=== PATIENT | female | born 1930 | race Caucasian/White ===

== ENCOUNTER 2016-06-16 17:43 | Emergency (ER) | payer OTHER ==
[~2016-06-16 17:43] MED LIST: ALTOPREV40 MG PO; ATENOLOL50 MG PO; DILANTIN100 MG PO; KLOR-CON 1010 MEQ PO; LEVOTHYROXINE100 MCG PO; LEVOTHYROXINE75 MCG PO; LISINOPRIL5 MG PO; MELATONIN1 MG PO
--- NOTE | 2016-06-16 18:12 | ED CLINICAL REPORT ---
Clinical Report - Physicians/Mid Levels [facility] [address] [place] [address] 06/16/2016 17:44 Patient: REMA GONZALEZ Time Seen: 17:49; initial patient contact, initial documentation, patient care assumed. Arrived- By private vehicle. Historian- patient and son. HISTORY OF PRESENT ILLNESS Chief Complaint: DENTAL PAIN. This started about 2 days ago and is still present. Pain described as severe. No sore throat, mouth sores, nasal discharge or congestion or ear pain. She has had toothache, swelling of the jaw and face, jaw pain and facial pain. (no dentist, several teeth bad, and has no money for dentist). Similar symptoms previously: Chronically, milder. Recent medical care: Not recently seen/assessed. REVIEW OF SYSTEMS No difficulty breathing. All systems otherwise negative, except as recorded above. PAST HISTORY See nurses notes. PROBLEMS: Dental Abscess. Pancreatitis. Recent Travel. Sick Contact. CVA - Cerebrovascular Accident. Diarrhea. Heart Murmur. Hiatal Hernia. Dental Caries. Dental Pain. Back Pain. Thyroid Disease. Hypertension. Seizure. Aneurysm, Cerebral. --17:51 Syeda Nguyen R.N. ADDITIONAL SURGERIES: Hernia Repair. Hysterectomy. Thyroid Surgery. --17:51 Syeda Nguyen R.N. SOCIAL HISTORY Former smoker. No alcohol use or drug use. No recent travel. Is a local resident. FAMILY HISTORY Negative. ADDITIONAL NOTES The nursing notes have been reviewed with agreement regarding the chief complaint, HPI, ROS, PMH and patient medications and allergies. PHYSICAL EXAM Vital Signs: 06/16/2016 17:48 BP: 184/63. HR: 63. RR: 20. O2 saturation: 100%. Temp: 98 F. Pain level now: 7/10. Have been reviewed as normal and appear to be correct. Appearance: Alert. No acute distress. Head: Abnormal external inspection. Mild swelling of the left mandible. Moderate swelling of the left maxilla. Eyes: Pupils equal, round and reactive to light. Conjunctivae and eyelids normal. ENT: Severe, extensive dental decay with gingival swelling (only one tooth left on bottom and it is partially gone, several teeth missing and molars on L lower side broken at gum line, extensive decay present and gum swelling on L lower). No gingival tenderness, induration or fluctuance. Pharynx normal. Lips normal. Gums normal. No trismus present. Uvula midline. Respiratory: No respiratory distress. Skin: Normal skin color. No rash. Normal skin turgor. Extremities: Extremities exhibit normal ROM. Extremities nontender. Neuro: Oriented X 3. No motor deficit. No sensory deficit. PROGRESS AND PROCEDURES Course of Care: 18:14 06/16/16. pt has gilberto for #5 er visit, nothing alarming, see report for full details. Patient and family counseled in person regarding the patient's stable condition and diagnosis. Differential Diagnosis: Other possible considerations: dental abscess, caries pain. Above considerations are based on history and physical exam. Differential diagnosis was discussed with patient and patient's family. Disposition: Discharged home in good and improved condition (18:12). Condition: good and stable. CLINICAL IMPRESSION Dental caries (extensive decay) INSTRUCTIONS Warnings: GENERAL WARNINGS: Return or contact your physician immediately if your condition worsens or changes unexpectedly, if not improving as expected, or if other problems arise. Specifically return if problem worsens. Prescription Medications: Penicillin V 500mg: take 1 tab orally every 6 hours for 10 days. Dispense forty (40). No refill [place] 5 mg / 325 mg tablets: take 1 to 2 orally every 6 hours as needed for pain. Dispense fifteen (15). No refills. Substitution is permissible. Follow-up: Follow up with a dentist in two days even if well. Call for an appointment. Summary of care provided to patient and family. Understanding of the discharge instructions verbalized by patient and family. (Electronically signed by Angela Alvarado A.R.N.P. 06/16/2016 19:47)
--- NOTE | 2016-06-16 18:12 | ED NURSING NOTES ---
Clinical Report - Nurses [facility] [address] [place] [address] 06/16/2016 17:44 Patient: REMA GONZALEZ TRIAGE Acuity: LEVEL 3. Chief Complaint: JAW PAIN and SWELLING OF JAW / FACE. Alert. No acute distress. --17:56 Syeda Nguyen R.N. 17:48 06/16/16. BP: 184/63. HR: 63. RR: 20. O2 saturation: 100% on room air. Temp: 98 F (oral). Pain level now: 08/26. --17:56 Syeda Nguyen R.N. Weight: 83.9 kg stated. Height/Length: 64 inches Per Patient. BMI: 31.8. --17:53 Syeda Nguyen R.N. Medications Atenolol Oral 50 mg, daily. Levothyroxine Sodium Oral 175 mcg, daily. Lovastatin Oral (Tablet 40 mg), daily. Melatonin Oral (Tablet 1 mg), daily. Phenytoin Oral 100 mg, daily (2 tabs). Potassium Chloride Oral 10 meq, daily. --17:50 Syeda Nguyen R.N. Medication/allergy information source: the patient. --17:56 Syeda Nguyen R.N. Allergies Ibuprofen. (caused stomach/GI bleed leading to blood transfusion.) --17:50 Syeda Nguyen R.N. History Arrived by private vehicle. Historian: patient. Accompanied by son. Primary physician (Phu). Onset. (2 days ago). She has no dental appointment scheduled. PAST MEDICAL HX: The patient has had a hysterectomy. SOCIAL HX: Former smoker, end date 1990. No alcohol use or drug use. NUTRITIONAL RISK ASSESSMENT: The nutritional risk assessment revealed no deficiencies. LEARNING NEEDS ASSESSMENT: The learning needs assessment revealed no barriers. FALL RISK ASSESSMENT: Fall risk assessment completed. Risk factors identified include patient age greater than 65 years and impairment of mobility and sight. Fall interventions initiated. Patient placed on stretcher. Side rails up x2. Brakes on Bed in low position. Call light in reach of patient. 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 SKIN INTEGRITY ASSESSMENT: Skin integrity risk assessment completed. No skin integrity risk identified. --17:56 Syeda Nguyen R.N. PROBLEMS: Dental Abscess. Pancreatitis. Recent Travel. Sick Contact. CVA - Cerebrovascular Accident. Diarrhea. Heart Murmur. Hiatal Hernia. Dental Caries. Dental Pain. Back Pain. Thyroid Disease. Hypertension. Seizure. Aneurysm, Cerebral. --17:51 Syeda Nguyen R.N. ADDITIONAL SURGERIES: Hernia Repair. Hysterectomy. Thyroid Surgery. --17:51 Syeda Nguyen R.N. Assessment GENERAL / NEURO / PSYCH: Alert. Oriented X 4. Appears in no acute distress. Holly Coma Scale: 15- eyes open spontaneously (4); best verbal response- oriented x 4 (5); best motor response- obeys commands (6). Patient appears calm and cooperative. RESPIRATORY: Respirations not labored. CVS: Capillary refill less than 2 seconds. GI / : Abdomen soft and nontender. SKIN: Mucous membranes are pink. Skin is warm and dry. --17:56 Syeda Nguyen R.N. Interventions ID band on patient. To treatment room. --17:56 Syeda Nguyen R.N. PHYSICAL ASSESSMENT 17:57 06/16/16. To room via wheelchair. GENERAL / NEURO / PSYCH: Alert. Oriented X 4. Appears in no acute distress. HEENT: Pupils equal, round and reactive to light. Voice within normal limits. Dental decay. Mucous membranes are pink. RESPIRATORY: Respirations not labored. CVS: Capillary refill less than 2 seconds. SKIN: Skin is warm and dry. Normal skin turgor. --17:57 Syeda Nguyen R.N. NURSING PROGRESS NOTES 17:57 06/16/16. Two patient identifiers checked. Call light placed in reach. Side rails up x 2. Bed placed in lowest position. Brakes of bed on. Patient ready for evaluation- chart flagged and ED physician and [employer] notified. --17:57 Syeda Nguyen R.N. 18:21 06/16/2016 Clindamycin IM 600 mg given. Given in the right gluteus obey and left gluteus obey (split dose). Allergies verified and confirmed 5 rights. --18:36 Syeda Nguyen R.N. 18:21 06/16/2016 Hydrocodone-APAP (Hydrocodone-Acetaminophen) PO 5/325 mg Tablets 1 tab given. Allergies verified, confirmed 5 rights and sedative warning given to the patient. --18:36 Syeda Nguyen R.N. DISPOSITION / DISCHARGE Departure time: 18:Jun 16 2016. Condition at departure: improved and stable. No learning barriers present. Reviewed medication(s) side effects, precautions and dosing information. Prescription(s) given to the patient. Patient verbalized understanding. Written instructions provided in Ukrainian. The patient was discharged by the nurse practitioner. She was discharged home and accompanied by son. She left the Emergency Department in a wheelchair and via private vehicle. Driving (son). --18:39 Syeda Nguyen R.N. Locked/Released at 06/16/2016 18:40 by Syeda Nguyen R.N.
--- NOTE | 2016-06-16 18:12 | ED ORDER SUMMARY ---
..... Patient: REMA GONZALEZ OrderSheet [facility] VisitID: [id number] [address] [place] [address] 85y, F Registration Date/Time: 06/16/2016 ORDER SHEET Weight: 83.9 kg (stated) Allergies: Ibuprofen GENERAL ORDERS: MEDICATION ORDERS: Clindamycin IM 600 mg (NOW) (18:09 06/16/2016 HBivens A.R.N.P.) (Ack 18:16 MWinterer R.N.) (18:36 MWinterer R.N.) Hydrocodone-APAP PO 5/325 mg (NOW, HIGH ALERT MEDICATION) (18:12 06/16/2016 HBivens A.R.N.P.) (Ack 18:16 MWinterer R.N.) (18:36 MWinterer R.N.) IV FLUIDS: ORDER SHEET NOTES: [Electronically signed by Syeda Nguyen R.N. (18:40 06/16/2016)] [Electronically signed by Angela Alvarado.R.N.P. (19:47 06/16/2016)] [Electronically locked/signed by Syeda Nguyen R.N. (18:40 06/16/2016)]
--- NOTE | 2016-06-16 18:12 | ED ORDER SUMMARY ---
..... Patient: REMA GONZALEZ OrderSheet [facility] VisitID: [id number] [address] [place] [address] 85y, F Registration Date/Time: 06/16/2016 ORDER SHEET Weight: 83.9 kg (stated) Allergies: Ibuprofen GENERAL ORDERS: MEDICATION ORDERS: Clindamycin IM 600 mg (NOW) (18:09 06/16/2016 HBivens A.R.N.P.) (Ack 18:16 MWinterer R.N.) (18:36 MWinterer R.N.) Hydrocodone-APAP PO 5/325 mg (NOW, HIGH ALERT MEDICATION) (18:12 06/16/2016 HBivens A.R.N.P.) (Ack 18:16 MWinterer R.N.) (18:36 MWinterer R.N.) IV FLUIDS: ORDER SHEET NOTES: [Electronically signed by Syeda Nguyen R.N. (18:40 06/16/2016)] [Electronically signed by Angela Alvarado.R.N.P. (19:47 06/16/2016)] [Electronically locked/signed by Syeda Nguyen R.N. (18:40 06/16/2016)]
--- NOTE | 2016-06-16 18:12 | ED CLINICAL REPORT ---
Clinical Report - Physicians/Mid Levels [facility] [address] [place] [address] 06/16/2016 17:44 Patient: REMA GONZALEZ Time Seen: 17:49; initial patient contact, initial documentation, patient care assumed. Arrived- By private vehicle. Historian- patient and son. HISTORY OF PRESENT ILLNESS Chief Complaint: DENTAL PAIN. This started about 2 days ago and is still present. Pain described as severe. No sore throat, mouth sores, nasal discharge or congestion or ear pain. She has had toothache, swelling of the jaw and face, jaw pain and facial pain. (no dentist, several teeth bad, and has no money for dentist). Similar symptoms previously: Chronically, milder. Recent medical care: Not recently seen/assessed. REVIEW OF SYSTEMS No difficulty breathing. All systems otherwise negative, except as recorded above. PAST HISTORY See nurses notes. PROBLEMS: Dental Abscess. Pancreatitis. Recent Travel. Sick Contact. CVA - Cerebrovascular Accident. Diarrhea. Heart Murmur. Hiatal Hernia. Dental Caries. Dental Pain. Back Pain. Thyroid Disease. Hypertension. Seizure. Aneurysm, Cerebral. --17:51 Syeda Nguyen R.N. ADDITIONAL SURGERIES: Hernia Repair. Hysterectomy. Thyroid Surgery. --17:51 Syeda Nguyen R.N. SOCIAL HISTORY Former smoker. No alcohol use or drug use. No recent travel. Is a local resident. FAMILY HISTORY Negative. ADDITIONAL NOTES The nursing notes have been reviewed with agreement regarding the chief complaint, HPI, ROS, PMH and patient medications and allergies. PHYSICAL EXAM Vital Signs: 06/16/2016 17:48 BP: 184/63. HR: 63. RR: 20. O2 saturation: 100%. Temp: 98 F. Pain level now: 7/10. Have been reviewed as normal and appear to be correct. Appearance: Alert. No acute distress. Head: Abnormal external inspection. Mild swelling of the left mandible. Moderate swelling of the left maxilla. Eyes: Pupils equal, round and reactive to light. Conjunctivae and eyelids normal. ENT: Severe, extensive dental decay with gingival swelling (only one tooth left on bottom and it is partially gone, several teeth missing and molars on L lower side broken at gum line, extensive decay present and gum swelling on L lower). No gingival tenderness, induration or fluctuance. Pharynx normal. Lips normal. Gums normal. No trismus present. Uvula midline. Respiratory: No respiratory distress. Skin: Normal skin color. No rash. Normal skin turgor. Extremities: Extremities exhibit normal ROM. Extremities nontender. Neuro: Oriented X 3. No motor deficit. No sensory deficit. PROGRESS AND PROCEDURES Course of Care: 18:14 06/16/16. pt has gilberto for #5 er visit, nothing alarming, see report for full details. Patient and family counseled in person regarding the patient's stable condition and diagnosis. Differential Diagnosis: Other possible considerations: dental abscess, caries pain. Above considerations are based on history and physical exam. Differential diagnosis was discussed with patient and patient's family. Disposition: Discharged home in good and improved condition (18:12). Condition: good and stable. CLINICAL IMPRESSION Dental caries (extensive decay) INSTRUCTIONS Warnings: GENERAL WARNINGS: Return or contact your physician immediately if your condition worsens or changes unexpectedly, if not improving as expected, or if other problems arise. Specifically return if problem worsens. Prescription Medications: Penicillin V 500mg: take 1 tab orally every 6 hours for 10 days. Dispense forty (40). No refill [place] 5 mg / 325 mg tablets: take 1 to 2 orally every 6 hours as needed for pain. Dispense fifteen (15). No refills. Substitution is permissible. Follow-up: Follow up with a dentist in two days even if well. Call for an appointment. Summary of care provided to patient and family. Understanding of the discharge instructions verbalized by patient and family. (Electronically signed by Angela Alvarado A.R.N.P. 06/16/2016 19:47)
--- NOTE | 2016-06-16 19:47 | ED DISCHARGE INSTRUCTIONS ---
Patient: REMA GONZALEZ General Instructions [facility] VisitID: [id number] [place] [address] 85y, F Registration Date/Time: 06/16/2016 Dental caries (extensive decay) INSTRUCTIONS Warnings: GENERAL WARNINGS: Return or contact your physician immediately if your condition worsens or changes unexpectedly, if not improving as expected, or if other problems arise. Specifically return if problem worsens. Prescription Medications: Penicillin V 500mg: take 1 tab orally every 6 hours for 10 days. Dispense forty (40). No refill [place] 5 mg / 325 mg tablets: take 1 to 2 orally every 6 hours as needed for pain. Dispense fifteen (15). No refills. Substitution is permissible. Follow-up: Follow up with a dentist in two days even if well. Call for an appointment. Summary of care provided to patient and family. Understanding of the discharge instructions verbalized by patient and family. ADDITIONAL INFORMATION Dental Cavity A dental cavity is a pit or crater in the enamel surface of the tooth. This exposes the sensitive inner layer of the tooth and causes pain. If untreated, the cavity will get bigger and may cause an infection or abscess in the root of the tooth. An infection in the tooth is a much more serious problem and may require a root canal or removal of the entire tooth. The tooth pain may be made worse by drinking hot or cold fluids. It may spread from the tooth to the ear or jaw on the same side. Home Care: Avoid hot and cold foods, and liquids since your tooth may be sensitive to temperature changes. If your tooth is chipped or cracked, or if there is a large open cavity, apply OIL OF CLOVES (available egms-cmx-fqyoqks in drug stores) directly to the tooth to reduce pain. Some pharmacies carry an bibt-twn-fplrpfv "toothache kit." This contains oil of cloves and a paste, which can be applied over the exposed tooth to decrease sensitivity. An ice pack on your jaw over the sore area may help to reduce pain. You may use acetaminophen (Tylenol) or ibuprofen (Motrin, Advil) to control pain, unless another pain medicine was prescribed. [ NOTE: If you have liver disease or ever had a stomach ulcer, talk with your doctor before using these medicines.] If you have signs of an infection, an antibiotic will be given. Take it as directed. Follow-Up with your dentist as directed. Although your pain may go away with the treatment given, only a dentist can fully evaluate and treat this problem to prevent further tooth damage. Get Prompt Medical Attention if any of the following occur: Redness or swelling of the face Pain worsens or spreads to the neck Fever over 100.5 F (38C) Unusual drowsiness; headache or stiff neck; weakness or fainting Pus drains from the tooth or gum Difficulty swallowing or breathing Dental Abscess A dental abscess is an infection of the tooth socket. It often starts with a crack or cavity in the tooth. A pocket of pus forms between the tooth and the bone. The infection causes pain and swelling of the gum, cheek or jaw. The pain is often made worse by drinking hot or cold fluids, or biting on hard foods. Pain may be felt in the facial sinus or in the ear. A severe infection can interfere with swallowing and breathing. In the emergency department or clinic, you will be started on an antibiotic. However, final treatment requires drainage of the pus. This can be done by removing the tooth or performing a root canal. A root canal is done by an oral surgeon and involves drilling an opening in the tooth to drain the pus. After the infection has healed, a crown is placed over the tooth. Home care The following guidelines will help you care for your abscess at home: Avoid hot and cold foods and liquids since your tooth may be sensitive to temperature changes. If your tooth is chipped or cracked, or if there is a large open cavity, applyoil of cloves(available piha-xak-ouituwl in drug stores) directly to the tooth to reduce pain. Some pharmacies carry an shcq-hnk-oppnixi "toothache kit". This contains oil of cloves and a paste, which can be applied over the exposed tooth to decrease sensitivity. Apply an ice pack (ice cubes in a plastic bag, wrapped in a towel) over the injured area for 20 minutes every 12 hours the first day for pain relief. Continue this 34 times a day until the pain and swelling goes away. You may use acetaminophen or ibuprofen to control pain, unless another medicine was prescribed. If you have chronic liver or kidney disease or ever had a stomach ulcer or GI bleeding, talk with your doctor before using these medicines. An antibiotic will be prescribed. Take it as directed until completed, even if you are feeling better sooner. Follow-up care Follow up as directed with a dentist or oral surgeon. Even though your pain may improve with the treatment given today, only a dentist or oral surgeon can provide full treatment for this problem. When to seek medical care Get prompt medical attention or contact your doctor if any of the following occur: Your face or eyelid becomes swollen or red Pain worsens or spreads to the neck Fever over 100.4F (38.0C) Unusual drowsiness; headache or stiff neck; weakness, or fainting Pus drains from the gum or tooth Difficulty talking, swallowing or breathing Unable to open your mouth wide Dental Pain A crack or cavity in the tooth, which exposes the sensitive inner area of the tooth can cause tooth pain. An infection in the gum or the root of the tooth can cause pain and swelling. The pain is often made worse by drinking hot or cold fluids, or biting on hard foods. Pain may spread from the tooth to the ear or jaw on the same side. Home Care: Avoid hot and cold foods and liquids since your tooth may be sensitive to temperature changes. If your tooth is chipped or cracked, or if there is a large open cavity, apply OIL OF CLOVES (available asef-ixl-fzarrwz in drug stores) directly to the tooth to reduce pain. Some pharmacies carry an bfig-ker-qlabqxa "toothache kit." This contains a paste, which can be applied over the exposed tooth to decrease sensitivity. A cold pack on your jaw over the sore area may help reduce pain. You may use acetaminophen (Tylenol) or ibuprofen (Motrin, Advil) to control pain, unless another medicine was prescribed. [ NOTE: If you have chronic liver or kidney disease or ever had a stomach ulcer or GI bleeding, talk with your doctor before using these medicines.] If you have signs of an infection, an antibiotic will be given. Take it as directed. Follow-Up as directed with a dentist. Your pain may go away with the treatment given. However, only a dentist can fully evaluate and treat the cause and prevent the pain from coming back again. TOOTHACHE IS A SIGN OF DISEASE IN YOUR TOOTH AND SHOULD BE EXAMINED AND TREATED BY A DENTIST. Get Prompt Medical Attention if any of the following occur: Your face becomes swollen or red Pain worsens or spreads to the neck Fever over 100.4 F (38.0 C) Unusual drowsiness; headache or stiff neck; weakness or fainting Pus drains from the tooth Difficulty swallowing or breathing Penicillin V Potassium Oral tablet What is this medicine? PENICILLIN V (pen i SILL in V) is a penicillin antibiotic. It is used to treat certain kinds of bacterial infections. It will not work for colds, flu, or other viral infections. How should I use this medicine? Take this medicine by mouth with a full glass of water. Follow the directions on the prescription label. Take your medicine at regular intervals. Do not take your medicine more often than directed. Take all of your medicine as directed even if you think your are better. Do not skip doses or stop your medicine early. Talk to your piano regulator inspector regarding the use of this medicine in children. While this drug may be prescribed for selected conditions, precautions do apply. What side effects may I notice from receiving this medicine? Side effects that you should report to your doctor or health pediatric acute care unit nurse as soon as possible: allergic reactions like skin rash or hives, swelling of the face, lips, or tongue breathing problems fever new symptoms of infection redness, blistering, peeling or loosening of the skin, including inside the mouth unusually weak or tired Side effects that usually do not require medical attention (report to your doctor or health pediatric acute care unit nurse if they continue or are bothersome): diarrhea headache nausea, vomiting sore mouth or tongue stomach upset What may interact with this medicine? control pills methotrexate other antibiotics probenecid some vaccines What if I miss a dose? If you miss a dose, take it as soon as you can. If it is almost time for your next dose, take only that dose. Do not take double or extra doses. Where should I keep my medicine? Keep out of the reach of children. Store at room temperature between 15 and 30 degrees C (59 and 86 degrees F). Keep container tightly closed. Throw away any unused medicine after the expiration date. What should I tell my health care provider before I take this medicine? They need to know if you have any of these conditions: asthma bowel disease, like colitis eczema kidney disease an unusual or allergic reaction to penicillin, cephalosporins, other antibiotics or medicines, foods, tartrazine or other dyes, or preservatives or trying to get breast-feeding What should I watch for while using this medicine? Tell your doctor or health pediatric acute care unit nurse if your symptoms do not improve. Do not treat diarrhea with over the counter products. Contact your doctor if you have diarrhea that lasts more than 2 days or if it is severe and watery. If you have diabetes, you may get a false-positive result for sugar in your urine. Check with your doctor or health pediatric acute care unit nurse. control pills may not work properly while you are taking this medicine. Talk to your doctor about using an extra method of control. Hydrocodone Bitartrate, Acetaminophen Oral tablet What is this medicine? ACETAMINOPHEN; HYDROCODONE (a set a CHANDA lora fen; jed droe KOE done) is a pain reliever. It is used to treat mild to moderate pain. How should I use this medicine? Take this medicine by mouth. Swallow it with a full glass of water. Follow the directions on the prescription label. If the medicine upsets your stomach, take the medicine with food or milk. Do not take more than you are told to take. Talk to your piano regulator inspector regarding the use of this medicine in children. This medicine is not approved for use in children. What side effects may I notice from receiving this medicine? Side effects that you should report to your doctor or health pediatric acute care unit nurse as soon as possible: allergic reactions like skin rash, itching or hives, swelling of the face, lips, or tongue breathing problems confusion feeling faint or lightheaded, falls stomach pain yellowing of the eyes or skin Side effects that usually do not require medical attention (report to your doctor or health pediatric acute care unit nurse if they continue or are bothersome): nausea, vomiting stomach upset What may interact with this medicine? alcohol antihistamines isoniazid medicines for depression, anxiety, or psychotic disturbances medicines for sleep muscle relaxants naltrexone narcotic medicines (opiates) for pain phenobarbital ritonavir tramadol What if I miss a dose? If you miss a dose, take it as soon as you can. If it is almost time for your next dose, take only that dose. Do not take double or extra doses. Where should I keep my medicine? Keep out of the reach of children. This medicine can be abused. Keep your medicine in a safe place to protect it from theft. Do not share this medicine with anyone. Selling or giving away this medicine is dangerous and against the law. Store at room temperature between 15 and 30 degrees C (59 and 86 degrees F). Protect from light. Keep container tightly closed. Throw away any unused medicine after the expiration date. Discard unused medicine and used packaging carefully. Pets and children can be harmed if they find used or lost packages. What should I tell my health care provider before I take this medicine? They need to know if you have any of these conditions: brain tumor Crohn's disease, inflammatory bowel disease, or ulcerative colitis drink more than 3 alcohol-containing drinks per day drug abuse or addiction head injury heart or circulation problems kidney disease or problems going to the bathroom liver disease lung disease, asthma, or breathing problems an unusual or allergic reaction to acetaminophen, hydrocodone, other opioid analgesics, other medicines, foods, dyes, or preservatives or trying to get breast-feeding What should I watch for while using this medicine? Tell your doctor or health pediatric acute care unit nurse if your pain does not go away, if it gets worse, or if you have new or a different type of pain. You may develop tolerance to the medicine. Tolerance means that you will need a higher dose of the medicine for pain relief. Tolerance is normal and is expected if you take the medicine for a long time. Do not suddenly stop taking your medicine because you may develop a severe reaction. Your body becomes used to the medicine. This does NOT mean you are addicted. Addiction is a behavior related to getting and using a drug for a non-medical reason. If you have pain, you have a medical reason to take pain medicine. Your doctor will tell you how much medicine to take. If your doctor wants you to stop the medicine, the dose will be slowly lowered over time to avoid any side effects. You may get drowsy or dizzy when you first start taking the medicine or change doses. Do not drive, use machinery, or do anything that may be dangerous until you know how the medicine affects you. Stand or sit up slowly. There are different types of narcotic medicines (opiates) for pain. If you take more than one type at the same time, you may have more side effects. Give your health care provider a list of all medicines you use. Your doctor will tell you how much medicine to take. Do not take more medicine than directed. Call emergency for help if you have problems breathing. The medicine will cause constipation. Try to have a bowel movement at least every 2 to 3 days. If you do not have a bowel movement for 3 days, call your doctor or health pediatric acute care unit nurse. Too much acetaminophen can be very dangerous. Do not take Tylenol (acetaminophen) or medicines that contain acetaminophen with this medicine. Many non-prescription medicines contain acetaminophen. Always read the labels carefully. You have been given the following additional information: Dental Cavity Tooth Abscess Dental Pain Penicillin V Potassium Oral tablet Hydrocodone Bitartrate, Acetaminophen Oral tablet (Electronically signed by Angela Alvarado A.R.N.P. 06/16/2016 19:47)
--- NOTE | 2016-06-16 19:47 | ED MED RECONCILIATION SUMMARY ---
Patient: REMA GONZALEZ Medication Reconciliation Report [facility] VisitID: [id number] [address] [place] [address] 85y, F Registration Date/Time: 06/16/2016 Weight: 83.9 kg Height/Length: 64 in. BMI: 31.8 ALLERGIES: Ibuprofen The patient's Home Medications are listed below: THE FOLLOWING MEDICATIONS NEED TO BE RECONCILED: Atenolol Oral 50 mg, daily Levothyroxine Sodium Oral 175 mcg, daily Lovastatin Oral (40 mg), daily Melatonin Oral (1 mg), daily Phenytoin Oral 100 mg, daily, 2 tabs Potassium Chloride Oral 10 meq, daily The source(s) of the original Home Medication information: patient The following Medications were given to the patient in the Emergency Department: Clindamycin [IM] IM 600 mg, administered: 06/16/2016 6:21:00 PM Hydrocodone-APAP [PO] PO 1 tab, administered: 06/16/2016 6:21:00 PM The following Medications were prescribed to the patient: Penicillin V 500mg: take 1 tab orally every 6 hours for 10 days. Dispense forty (40). No refill -- Angela Alvarado, Adryan.R.N.P. [place] 5 mg / 325 mg tablets: take 1 to 2 orally every 6 hours as needed for pain. Dispense fifteen (15). No refills. Substitution is permissible. -- Angela Alvarado A.R.N.P.
--- NOTE | 2016-06-16 19:47 | ED MED RECONCILIATION SUMMARY ---
Patient: REMA GONZALEZ Medication Reconciliation Report [facility] VisitID: [id number] [address] [place] [address] 85y, F Registration Date/Time: 06/16/2016 Weight: 83.9 kg Height/Length: 64 in. BMI: 31.8 ALLERGIES: Ibuprofen The patient's Home Medications are listed below: THE FOLLOWING MEDICATIONS NEED TO BE RECONCILED: Atenolol Oral 50 mg, daily Levothyroxine Sodium Oral 175 mcg, daily Lovastatin Oral (40 mg), daily Melatonin Oral (1 mg), daily Phenytoin Oral 100 mg, daily, 2 tabs Potassium Chloride Oral 10 meq, daily The source(s) of the original Home Medication information: patient The following Medications were given to the patient in the Emergency Department: Clindamycin [IM] IM 600 mg, administered: 06/16/2016 6:21:00 PM Hydrocodone-APAP [PO] PO 1 tab, administered: 06/16/2016 6:21:00 PM The following Medications were prescribed to the patient: Penicillin V 500mg: take 1 tab orally every 6 hours for 10 days. Dispense forty (40). No refill -- Angela Alvarado, Adryan.R.N.P. [place] 5 mg / 325 mg tablets: take 1 to 2 orally every 6 hours as needed for pain. Dispense fifteen (15). No refills. Substitution is permissible. -- Angela Alvarado A.R.N.P.
--- NOTE | 2016-06-16 19:47 | ED DISCHARGE INSTRUCTIONS ---
Patient: REMA GONZALEZ General Instructions [facility] VisitID: [id number] [place] [address] 85y, F Registration Date/Time: 06/16/2016 Dental caries (extensive decay) INSTRUCTIONS Warnings: GENERAL WARNINGS: Return or contact your physician immediately if your condition worsens or changes unexpectedly, if not improving as expected, or if other problems arise. Specifically return if problem worsens. Prescription Medications: Penicillin V 500mg: take 1 tab orally every 6 hours for 10 days. Dispense forty (40). No refill [place] 5 mg / 325 mg tablets: take 1 to 2 orally every 6 hours as needed for pain. Dispense fifteen (15). No refills. Substitution is permissible. Follow-up: Follow up with a dentist in two days even if well. Call for an appointment. Summary of care provided to patient and family. Understanding of the discharge instructions verbalized by patient and family. ADDITIONAL INFORMATION Dental Cavity A dental cavity is a pit or crater in the enamel surface of the tooth. This exposes the sensitive inner layer of the tooth and causes pain. If untreated, the cavity will get bigger and may cause an infection or abscess in the root of the tooth. An infection in the tooth is a much more serious problem and may require a root canal or removal of the entire tooth. The tooth pain may be made worse by drinking hot or cold fluids. It may spread from the tooth to the ear or jaw on the same side. Home Care: Avoid hot and cold foods, and liquids since your tooth may be sensitive to temperature changes. If your tooth is chipped or cracked, or if there is a large open cavity, apply OIL OF CLOVES (available zuer-hyu-ipxyind in drug stores) directly to the tooth to reduce pain. Some pharmacies carry an wbnq-bnc-upgzwbi "toothache kit." This contains oil of cloves and a paste, which can be applied over the exposed tooth to decrease sensitivity. An ice pack on your jaw over the sore area may help to reduce pain. You may use acetaminophen (Tylenol) or ibuprofen (Motrin, Advil) to control pain, unless another pain medicine was prescribed. [ NOTE: If you have liver disease or ever had a stomach ulcer, talk with your doctor before using these medicines.] If you have signs of an infection, an antibiotic will be given. Take it as directed. Follow-Up with your dentist as directed. Although your pain may go away with the treatment given, only a dentist can fully evaluate and treat this problem to prevent further tooth damage. Get Prompt Medical Attention if any of the following occur: Redness or swelling of the face Pain worsens or spreads to the neck Fever over 100.5 F (38C) Unusual drowsiness; headache or stiff neck; weakness or fainting Pus drains from the tooth or gum Difficulty swallowing or breathing Dental Abscess A dental abscess is an infection of the tooth socket. It often starts with a crack or cavity in the tooth. A pocket of pus forms between the tooth and the bone. The infection causes pain and swelling of the gum, cheek or jaw. The pain is often made worse by drinking hot or cold fluids, or biting on hard foods. Pain may be felt in the facial sinus or in the ear. A severe infection can interfere with swallowing and breathing. In the emergency department or clinic, you will be started on an antibiotic. However, final treatment requires drainage of the pus. This can be done by removing the tooth or performing a root canal. A root canal is done by an oral surgeon and involves drilling an opening in the tooth to drain the pus. After the infection has healed, a crown is placed over the tooth. Home care The following guidelines will help you care for your abscess at home: Avoid hot and cold foods and liquids since your tooth may be sensitive to temperature changes. If your tooth is chipped or cracked, or if there is a large open cavity, applyoil of cloves(available atoy-qgl-fhupxrf in drug stores) directly to the tooth to reduce pain. Some pharmacies carry an yivs-eui-nphltdi "toothache kit". This contains oil of cloves and a paste, which can be applied over the exposed tooth to decrease sensitivity. Apply an ice pack (ice cubes in a plastic bag, wrapped in a towel) over the injured area for 20 minutes every 12 hours the first day for pain relief. Continue this 34 times a day until the pain and swelling goes away. You may use acetaminophen or ibuprofen to control pain, unless another medicine was prescribed. If you have chronic liver or kidney disease or ever had a stomach ulcer or GI bleeding, talk with your doctor before using these medicines. An antibiotic will be prescribed. Take it as directed until completed, even if you are feeling better sooner. Follow-up care Follow up as directed with a dentist or oral surgeon. Even though your pain may improve with the treatment given today, only a dentist or oral surgeon can provide full treatment for this problem. When to seek medical care Get prompt medical attention or contact your doctor if any of the following occur: Your face or eyelid becomes swollen or red Pain worsens or spreads to the neck Fever over 100.4F (38.0C) Unusual drowsiness; headache or stiff neck; weakness, or fainting Pus drains from the gum or tooth Difficulty talking, swallowing or breathing Unable to open your mouth wide Dental Pain A crack or cavity in the tooth, which exposes the sensitive inner area of the tooth can cause tooth pain. An infection in the gum or the root of the tooth can cause pain and swelling. The pain is often made worse by drinking hot or cold fluids, or biting on hard foods. Pain may spread from the tooth to the ear or jaw on the same side. Home Care: Avoid hot and cold foods and liquids since your tooth may be sensitive to temperature changes. If your tooth is chipped or cracked, or if there is a large open cavity, apply OIL OF CLOVES (available zgox-grg-iqotiwz in drug stores) directly to the tooth to reduce pain. Some pharmacies carry an rxnb-zvp-vlfqjqt "toothache kit." This contains a paste, which can be applied over the exposed tooth to decrease sensitivity. A cold pack on your jaw over the sore area may help reduce pain. You may use acetaminophen (Tylenol) or ibuprofen (Motrin, Advil) to control pain, unless another medicine was prescribed. [ NOTE: If you have chronic liver or kidney disease or ever had a stomach ulcer or GI bleeding, talk with your doctor before using these medicines.] If you have signs of an infection, an antibiotic will be given. Take it as directed. Follow-Up as directed with a dentist. Your pain may go away with the treatment given. However, only a dentist can fully evaluate and treat the cause and prevent the pain from coming back again. TOOTHACHE IS A SIGN OF DISEASE IN YOUR TOOTH AND SHOULD BE EXAMINED AND TREATED BY A DENTIST. Get Prompt Medical Attention if any of the following occur: Your face becomes swollen or red Pain worsens or spreads to the neck Fever over 100.4 F (38.0 C) Unusual drowsiness; headache or stiff neck; weakness or fainting Pus drains from the tooth Difficulty swallowing or breathing Penicillin V Potassium Oral tablet What is this medicine? PENICILLIN V (pen i SILL in V) is a penicillin antibiotic. It is used to treat certain kinds of bacterial infections. It will not work for colds, flu, or other viral infections. How should I use this medicine? Take this medicine by mouth with a full glass of water. Follow the directions on the prescription label. Take your medicine at regular intervals. Do not take your medicine more often than directed. Take all of your medicine as directed even if you think your are better. Do not skip doses or stop your medicine early. Talk to your forensic audit expert regarding the use of this medicine in children. While this drug may be prescribed for selected conditions, precautions do apply. What side effects may I notice from receiving this medicine? Side effects that you should report to your doctor or health rn wound care as soon as possible: allergic reactions like skin rash or hives, swelling of the face, lips, or tongue breathing problems fever new symptoms of infection redness, blistering, peeling or loosening of the skin, including inside the mouth unusually weak or tired Side effects that usually do not require medical attention (report to your doctor or health rn wound care if they continue or are bothersome): diarrhea headache nausea, vomiting sore mouth or tongue stomach upset What may interact with this medicine? control pills methotrexate other antibiotics probenecid some vaccines What if I miss a dose? If you miss a dose, take it as soon as you can. If it is almost time for your next dose, take only that dose. Do not take double or extra doses. Where should I keep my medicine? Keep out of the reach of children. Store at room temperature between 15 and 30 degrees C (59 and 86 degrees F). Keep container tightly closed. Throw away any unused medicine after the expiration date. What should I tell my health care provider before I take this medicine? They need to know if you have any of these conditions: asthma bowel disease, like colitis eczema kidney disease an unusual or allergic reaction to penicillin, cephalosporins, other antibiotics or medicines, foods, tartrazine or other dyes, or preservatives or trying to get breast-feeding What should I watch for while using this medicine? Tell your doctor or health rn wound care if your symptoms do not improve. Do not treat diarrhea with over the counter products. Contact your doctor if you have diarrhea that lasts more than 2 days or if it is severe and watery. If you have diabetes, you may get a false-positive result for sugar in your urine. Check with your doctor or health rn wound care. control pills may not work properly while you are taking this medicine. Talk to your doctor about using an extra method of control. Hydrocodone Bitartrate, Acetaminophen Oral tablet What is this medicine? ACETAMINOPHEN; HYDROCODONE (a set a CHANDA lora fen; jed droe KOE done) is a pain reliever. It is used to treat mild to moderate pain. How should I use this medicine? Take this medicine by mouth. Swallow it with a full glass of water. Follow the directions on the prescription label. If the medicine upsets your stomach, take the medicine with food or milk. Do not take more than you are told to take. Talk to your forensic audit expert regarding the use of this medicine in children. This medicine is not approved for use in children. What side effects may I notice from receiving this medicine? Side effects that you should report to your doctor or health rn wound care as soon as possible: allergic reactions like skin rash, itching or hives, swelling of the face, lips, or tongue breathing problems confusion feeling faint or lightheaded, falls stomach pain yellowing of the eyes or skin Side effects that usually do not require medical attention (report to your doctor or health rn wound care if they continue or are bothersome): nausea, vomiting stomach upset What may interact with this medicine? alcohol antihistamines isoniazid medicines for depression, anxiety, or psychotic disturbances medicines for sleep muscle relaxants naltrexone narcotic medicines (opiates) for pain phenobarbital ritonavir tramadol What if I miss a dose? If you miss a dose, take it as soon as you can. If it is almost time for your next dose, take only that dose. Do not take double or extra doses. Where should I keep my medicine? Keep out of the reach of children. This medicine can be abused. Keep your medicine in a safe place to protect it from theft. Do not share this medicine with anyone. Selling or giving away this medicine is dangerous and against the law. Store at room temperature between 15 and 30 degrees C (59 and 86 degrees F). Protect from light. Keep container tightly closed. Throw away any unused medicine after the expiration date. Discard unused medicine and used packaging carefully. Pets and children can be harmed if they find used or lost packages. What should I tell my health care provider before I take this medicine? They need to know if you have any of these conditions: brain tumor Crohn's disease, inflammatory bowel disease, or ulcerative colitis drink more than 3 alcohol-containing drinks per day drug abuse or addiction head injury heart or circulation problems kidney disease or problems going to the bathroom liver disease lung disease, asthma, or breathing problems an unusual or allergic reaction to acetaminophen, hydrocodone, other opioid analgesics, other medicines, foods, dyes, or preservatives or trying to get breast-feeding What should I watch for while using this medicine? Tell your doctor or health rn wound care if your pain does not go away, if it gets worse, or if you have new or a different type of pain. You may develop tolerance to the medicine. Tolerance means that you will need a higher dose of the medicine for pain relief. Tolerance is normal and is expected if you take the medicine for a long time. Do not suddenly stop taking your medicine because you may develop a severe reaction. Your body becomes used to the medicine. This does NOT mean you are addicted. Addiction is a behavior related to getting and using a drug for a non-medical reason. If you have pain, you have a medical reason to take pain medicine. Your doctor will tell you how much medicine to take. If your doctor wants you to stop the medicine, the dose will be slowly lowered over time to avoid any side effects. You may get drowsy or dizzy when you first start taking the medicine or change doses. Do not drive, use machinery, or do anything that may be dangerous until you know how the medicine affects you. Stand or sit up slowly. There are different types of narcotic medicines (opiates) for pain. If you take more than one type at the same time, you may have more side effects. Give your health care provider a list of all medicines you use. Your doctor will tell you how much medicine to take. Do not take more medicine than directed. Call emergency for help if you have problems breathing. The medicine will cause constipation. Try to have a bowel movement at least every 2 to 3 days. If you do not have a bowel movement for 3 days, call your doctor or health rn wound care. Too much acetaminophen can be very dangerous. Do not take Tylenol (acetaminophen) or medicines that contain acetaminophen with this medicine. Many non-prescription medicines contain acetaminophen. Always read the labels carefully. You have been given the following additional information: Dental Cavity Tooth Abscess Dental Pain Penicillin V Potassium Oral tablet Hydrocodone Bitartrate, Acetaminophen Oral tablet (Electronically signed by Angela Alvarado A.R.N.P. 06/16/2016 19:47)
--- NOTE | 2016-06-16 19:47 | ED MAR SUMMARY ---
..... Medication Administration Record [facility] [address] [place] [address] Patient: REMA GONZALEZ Visit ID: [id number] 85y, F Weight: 83.9 kg Height/Length: 64 in BMI: 31.8 ALLERGIES: Ibuprofen Given 18:06/16/2016 Syeda Nguyen [employer] Medication Administered: CLINDAMYCIN [IM], Dose: 600 mg IM. Medication Ordered: Clindamycin IM 600 mg (NOW). Given 18:06/16/2016 Syeda Nguyen, R.N. Medication Administered: HYDROCODONE-APAP [PO] (HYDROCODONE-ACETAMINOPHEN), Dose: 1 tab 5/325 mg Tablets PO. Medication Ordered: Hydrocodone-APAP PO 5/325 mg (NOW, HIGH ALERT MEDICATION).
--- NOTE | 2016-06-16 19:47 | ED MAR SUMMARY ---
..... Medication Administration Record [facility] [address] [place] [address] Patient: REMA GONZALEZ Visit ID: [id number] 85y, F Weight: 83.9 kg Height/Length: 64 in BMI: 31.8 ALLERGIES: Ibuprofen Given 18:06/16/2016 Syeda Nguyen [employer] Medication Administered: CLINDAMYCIN [IM], Dose: 600 mg IM. Medication Ordered: Clindamycin IM 600 mg (NOW). Given 18:06/16/2016 Syeda Nguyen, R.N. Medication Administered: HYDROCODONE-APAP [PO] (HYDROCODONE-ACETAMINOPHEN), Dose: 1 tab 5/325 mg Tablets PO. Medication Ordered: Hydrocodone-APAP PO 5/325 mg (NOW, HIGH ALERT MEDICATION).
== END 2016-06-16 18:20 | disposition home or self-care (01) ==
LOC: ED SRH 17:43
DX: K02.9 Dental caries, unspecified (principal); I10 Essential (primary) hypertension; Z79.899 Other long term (current) drug therapy; Z87.891 Personal history of nicotine dependence